=== PATIENT | female | born 1985 | race Caucasian/White ===

== ENCOUNTER 2019-02-06 08:42 | Emergency (ER) | payer MEDICAID, OTHER ==
[~2019-02-06] VITALS: Ht 170.2 cm; Wt 89.7 kg
[~2019-02-06 08:42] MED LIST: ALPR-475 PO; ALPR1TAB2 PO; ASPI-496 PO; BIRTH CONTROL PILL MT; FLUO40CA9 PO; METH500T97 PO; MIRT15TA PO; TRAZ-137 PO; ZOLP-413 PO
[2019-02-06 08:44] VITALS: BP 128/77
--- NOTE | 2019-02-06 08:58 | NUR ---
PT HAS PAINFUL HEMATOMA TO UPPER R ARM BEGINNING 1-2 WEEKS AGO, SMALLER HEMATOMA FORMING ON LOWER R ARM X 24 HOURS. HX OF FACTOR V LEIDEN DISORDER, ASA DAILY, ADVISED TO COME TO ED BY PCP. PATIENT REPORTS NEXPLANON INSERTION LT UPPER ARM 5-[address] REEMA BOWLES, REPORTS SYMPTOMS STARTED 2.5 WEEKS AFTER. NISHA, AWAITING MD ORDERS, CALL LIGHT WITHIN REACH.
[2019-02-06] MEDS ORDERED: KETOROLAC 30 MG/1 ML IM ONE (09:30)
[2019-02-06] MEDS ORDERED: KETOROLAC 30 MG/1 ML ONE (09:35)
[2019-02-06] MEDS ORDERED: BUPR-86 PO (09:41)
[2019-02-06] MEDS ORDERED: MULT-516 PO (09:41)
--- NOTE | 2019-02-06 09:41 | NUR ---
MEDICATION ADMINISTERED PER MAR, LABS COMPLETED, AWAITING US. PATIENT HAS SERVICE DOG AT BEDSIDE.
[2019-02-06 09:50] LABS: BASOPHILS # (AUTO) 0.01 x10^3/uL (0-0.1); BASOPHILS % (AUTO) 0 % (0-1); EOSINOPHILS # (AUTO) 0.05 x10^3/uL (0-0.4); EOSINOPHILS % (AUTO) 1 % (1-7); LYMPHOCYTES # (AUTO) 0.97 x10^3/uL (1-3.4); LYMPHOCYTES % (AUTO) 20 % (22-44); MD NO; MEAN CORPUSCULAR HEMOGLOBIN 30.6 pg (27.0-34.8); MEAN CORPUSCULAR HGB CONC 33.2 g/dL (32.4-35.8); MONOCYTES % (AUTO) 8 % (2-9); NEUTROPHILS # (AUTO) 3.43 x10^3/uL (1.8-6.8); NEUTROPHILS % (AUTO) 71 % (42-75); PLATELET COUNT 243 x10^3/uL (130-400); RED BLOOD COUNT 5.25 x10^6/uL (3.82-5.3); RED CELL DISTRIBUTION WIDTH 14.1 % (9.6-15.2)
== END 2019-02-06 11:20 | disposition home or self-care (01) ==
LOC: ED 11:00
DX: S40.021A Contusion of right upper arm, initial encounter (principal); J45.909 Unspecified asthma, uncomplicated; X58.XXXA Exposure to other specified factors, initial encounter; Y93.89 Activity, other specified; Y92.89 Other specified places as the place of occurrence of the external cause; Y99.8 Other external cause status
CPT/HCPCS: 36415; 85025; 93971; 96372; 99284; J1885